=== PATIENT | female | born 1995 | race Hispanic/Latino ===

== ENCOUNTER 2019-01-07 11:12 | Emergency (ER) | payer BC | END 2019-01-07 16:53 | disposition home or self-care (01) | LOC: EDH 11:12 | DX: T88.6XXA Anaphylactic reaction due to adverse effect of correct drug or medicament properly administered, initial encounter (principal); M32.9 Systemic lupus erythematosus, unspecified; Z88.8 Allergy status to other drugs, medicaments and biological substances ==